=== PATIENT | male | born 1975 | race Caucasian/White ===

== ENCOUNTER 2017-01-23 17:38 | Emergency (ER) | payer SELFPAY ==
[~2017-01-23] VITALS: Ht 165.1 cm; Wt 77.0 kg
[2017-01-23] MEDS ORDERED: KETOROLAC 60MG/2ML VIAL IM ONE (18:30)
[2017-01-23 19:58] VITALS: BP 121/63
== END 2017-01-23 19:58 | disposition home or self-care (01) ==
LOC: ER 17:38
DX: S50.02XA Contusion of left elbow, initial encounter (principal); W19.XXXA Unspecified fall, initial encounter; Y93.89 Activity, other specified; Y92.89 Other specified places as the place of occurrence of the external cause; Y99.8 Other external cause status
CPT/HCPCS: 73060; 73080; 73090; 96372; 99284; J1885; Z7610; A4565